=== PATIENT | female | born 1985 | race Caucasian/White ===

== ENCOUNTER → 2016-09-24 | Outpatient (REF) | payer OTHER, MEDICAID ==
[~2016-09-24] MED LIST: ACET50TA PO; DOCU10CA PO; MOTR200T44 PO; PRENTAB55 PO; PROZ20CA11 PO
== END ==
LOC: M SFHCCLAY 13:40
PROVIDERS: ATTEND Family Medicine
DX: Z12.4 Encounter for screening for malignant neoplasm of cervix (principal); R87.612 Low grade squamous intraepithelial lesion on cytologic smear of cervix (LGSIL)

== ENCOUNTER 2016-11-19 06:18 | Day surgery (SDC) | payer OTHER, MEDICAID ==
[~2016-11-19] VITALS: Ht 162.6 cm; Wt 78.5 kg
[~2016-11-19 06:18] MED LIST changes: +ALBU17IN INH; +BUSP15TA47 PO; +DULO1CAP3 PO; +FAMO20TA PO; +KETO10TAB PO; +LAMO10TA PO; +MACR100C43 PO; +MICR1TAB16 PO; +MYRB25TA PO; +NAPR500T3 PO; +PREG100CA PO; +ROBA750T4 PO; +ROPI1TAB PO; +SAPH1SUB9 SL; +TYLETAB14 PO; +VITA10002 PO; +ZANA4CAP PO; +ZOFR20TA PO; +ZONI50CA3 PO
[2016-11-19] MEDS ORDERED: LR 1,000 ML IV SCH ×3 (06:30→09:00)
[2016-11-19] MEDS ORDERED: LIDOCAINE 1% SDV 5 ML VIAL SQ ONE (06:30)
[2016-11-19] MEDS ORDERED: VITA200038 PO (06:51)
[2016-11-19] MEDS ORDERED: VASOPRESSIN INJ 20 UNITS/ML VIAL As Ordered ONE (07:22)
[2016-11-19] MEDS ORDERED: LIDOCAINE 2% INJ 100 MG/5 ML SDV (FOR ANES.) As Ordered ONE (07:43)
[2016-11-19] MEDS ORDERED: dexameTHASONE 4 MG/ML 1ML VIAL (J1100) As Ordered ONE (07:43)
[2016-11-19] MEDS ORDERED: PROPOFOL 200 MG/20 ML VIAL As Ordered ONE (07:43)
[2016-11-19] MEDS ORDERED: MIDAZOLAM INJ 2 MG/2 ML VIAL (J2250) As Ordered ONE (07:43)
[2016-11-19] MEDS ORDERED: fentaNYL 100 MCG/2 ML INJECTION (J3010) As Ordered ONE (07:43)
[2016-11-19] MEDS ORDERED: ONDANSETRON 4MG/2ML VIAL (J2405) As Ordered ONE (08:04)
[2016-11-19] MEDS ORDERED: KETOROLAC 60 MG/2 ML VIAL (J1885) As Ordered ONE (08:04)
[2016-11-19] MEDS ORDERED: fentaNYL 100 MCG/2 ML INJECTION (J3010) IV PRN (09:00)
[2016-11-19] MEDS ORDERED: PERCOCET 5MG/325MG TAB PO PRN (09:00)
[2016-11-19] MEDS ORDERED: ONDANSETRON 4MG/2ML VIAL (J2405) IV PRN (09:00)
[2016-11-19] MEDS ORDERED: METOCLOPRAMIDE INJ 10MG/2ML VIAL (J2765) IV PRN (09:00)
[2016-11-19] MEDS ORDERED: NORCO, ANEXSIA 5/325MG TABLET (HYDROcodone/ACETAMINOPHEN) PO PRN (09:00)
[2016-11-19] MEDS ORDERED: MEPERIDINE INJ 25 MG/ML VIAL (J2175) IV PRN (09:00)
[2016-11-19 09:50] VITALS: BP 134/78
[2016-11-19] MEDS ORDERED: IBUPROFEN 600 MG TAB PO PRN (14:00)
--- NOTE | 2016-11-20 07:02 | RO ---
DATE OF PROCEDURE: 11/19/2016 PREPROCEDURE DIAGNOSIS: Stress urinary incontinence with urethral hypermobility. POSTPROCEDURE DIAGNOSIS: Stress urinary incontinence with urethral hypermobility. PROCEDURE: Mini mid urethral sling with cystourethroscopy. SURGEON: Dr. Niki Phillip RECOOPERER: ANESTHESIA: LMA. BRIEF DESCRIPTION OF PROCEDURE: Michelle was brought to the operating room where sufficient LMA anesthesia was induced and she was prepped, draped and positioned in the usual sterile fashion with the bladder emptied and then the anterior aspect of the vagina visualized. An Allis clamp elevated the anterior vaginal wall and we injected with vasopressin as is typical after the patient had been positioned and the landmarks carefully identified. We then used the scalpel to make an approximately 1.5 cm incision in the anterior vaginal wall approximately 1 cm cephalad from the urethral meatus. The Strully scissors were used to dissect the tracts, both right and left. Then, the mid urethral sling was placed, first on the right side and then on the left, securing it to the obturator fossa and taking care to maintain flat smooth placement of the mesh itself. We used a Solex MiniArc mesh. Then, the cystourethroscopy confirmed normal urethral meati with normal jets of urine from each. There was no evidence of injury to the bladder. We did a 360 degree circumferential evaluation of the bladder mucosa, elevated it with my fingers inferiorly to confirm that there was no puckering or injury from the mesh. Then the procedure was ended with the bladder emptied and the vaginal incision closed with #2-0 Vicryl in running stitch. Good approximation and hemostasis achieved. Estimated blood loss was maybe 5 mL or less. Fluid replacement was crystalloid. Complications: None. Condition and Disposition: Michelle tolerated the procedure well and was recovering in the recovery room in good condition.
== END 2016-11-19 10:04 | disposition home or self-care (01) ==
LOC: M SDC 06:18
PROVIDERS: ATTEND Obstetrics & Gynecology
DX: N39.3 Stress incontinence (female) (male) (principal); N36.41 Hypermobility of urethra; G43.909 Migraine, unspecified, not intractable, without status migrainosus; M79.7 Fibromyalgia; K58.9 Irritable bowel syndrome, unspecified; F32.9 Major depressive disorder, single episode, unspecified; R87.810 Cervical high risk human papillomavirus (HPV) DNA test positive; R29.898 Other symptoms and signs involving the musculoskeletal system; M54.2 Cervicalgia; F41.9 Anxiety disorder, unspecified; Z88.8 Allergy status to other drugs, medicaments and biological substances; Z79.899 Other long term (current) drug therapy; Z72.0 Tobacco use; Z98.51 Tubal ligation status
CPT/HCPCS: 57288; C1771; J0690; J1100; J1885; J2250; J2405; J3010

== ENCOUNTER → 2017-01-06 | Outpatient (REF) | payer OTHER, MEDICAID ==
[~2017-01-06] MED LIST changes: +VITA200038 PO; +ZOFR4TAB3 PO
[2017-01-06 18:33] LABS: VITAMIN B12 LEVEL 472 PG/ML
[2017-01-06 18:34] LABS: FOLATE > 24.0 NG/ML
[2017-01-06 19:15] LABS: BASO % 0.3 % (0.0-1.0); EOS # 0.3 K/mm3 (0.0-0.50); EOS % 2.8 % (0.0-3.0); LARGE UNSTAINED CELL # 0.1 K/mm3 (0.0-0.4); LARGE UNSTAINED CELL % 0.6 % (0.0-4.0); LYMPH % 20.7 % (24.0-44.0); MEAN CORPUSCULAR HEMOGLOBIN 30.2 pg (27.0-33.0); MEAN CORPUSCULAR HGB CONC 33.2 g/dl (32.0-36.5); MEAN CORPUSCULAR VOLUME 91.1 fl (80.0-96.0); MONO # 0.5 K/mm3 (0.0-0.8); NEUTROPHILS # 6.6 K/mm3 (1.8-7.7); NEUTROPHILS % 70.7 % (36.0-66.0); PLATELET COUNT, AUTOMATED 240 k/mm3 (150-450); RED CELL DISTRIBUTION WIDTH 14.6 % (11.5-14.5); WHITE BLOOD COUNT 9.3 K/mm3 (4.0-10.0)
[2017-01-06 19:54] LABS: ALKALINE PHOSPHATASE 68 U/L (45-117); AST/SGOT 22 U/L (15-37); BILIRUBIN,TOTAL 0.2 MG/DL (0.2-1.0); BLOOD UREA NITROGEN 14 MG/DL (7-18); CALCIUM LEVEL 9.3 MG/DL (8.5-10.1); CARBON DIOXIDE LEVEL 23 MEQ/L (21-32); CHLORIDE LEVEL 111 MEQ/L (98-107); CREATININE FOR GFR 1.05 MG/DL (0.55-1.02); GLUCOSE, FASTING 117 MG/DL (70-105); POTASSIUM SERUM 4.2 MEQ/L (3.5-5.1); TOTAL PROTEIN 7.8 GM/DL (6.4-8.2)
[2017-01-06 20:31] LABS: ALT/SGPT 29 U/L (12-78)
[2017-01-06 20:34] LABS: ALBUMIN 3.9 GM/DL (3.2-5.2); ANION GAP 8 MEQ/L (8-16); SODIUM LEVEL 142 MEQ/L (136-145)
[2017-01-06 20:42] LABS: ERYTHROCYTE SEDIMENTATION RATE 20 mm/hr (0-20)
[2017-01-09 00:07] LABS: Lyme Disease IgG/IgM Antibodie <0.91 ISR (0.00-0.90); Lyme Disease IgM Ab Quantitati <0.80 index (0.00-0.79)
== END ==
LOC: M LABNEURO 16:43
PROVIDERS: ATTEND Physician Assistant Medical
DX: E55.9 Vitamin D deficiency, unspecified (principal); R53.83 Other fatigue; R51 Headache; E53.8 Deficiency of other specified B group vitamins; R20.2 Paresthesia of skin

== ENCOUNTER 2017-01-09 19:01 | Emergency (ER) | payer OTHER, MEDICAID ==
[~2017-01-09] VITALS: Ht 162.6 cm; Wt 81.0 kg
[~2017-01-09 19:01] MED LIST changes: -ZOFR4TAB3 PO
[2017-01-09] MEDS ORDERED: NS 500 ML IV ONE (20:30)
[2017-01-09] MEDS ORDERED: ZOFR4TAB3 PO (20:36)
[2017-01-09 21:05] LABS: BASO % 0.4 % (0.0-1.0); EOS # 0.3 K/mm3 (0.0-0.50); LARGE UNSTAINED CELL # 0.2 K/mm3 (0.0-0.4); LARGE UNSTAINED CELL % 2.1 % (0.0-4.0); LYMPH # 2.5 K/mm3 (1.5-6.5); LYMPH % 28.3 % (24.0-44.0); MEAN CORPUSCULAR HEMOGLOBIN 31.8 pg (27.0-33.0); MEAN CORPUSCULAR HGB CONC 35.9 g/dl (32.0-36.5); MEAN CORPUSCULAR VOLUME 88.6 fl (80.0-96.0); MONO # 0.4 K/mm3 (0.0-0.8); MONO % 4.1 % (0.0-5.0); NEUTROPHILS # 5.4 K/mm3 (1.8-7.7); NEUTROPHILS % 62.1 % (36.0-66.0); PLATELET COUNT, AUTOMATED 222 k/mm3 (150-450); RED CELL DISTRIBUTION WIDTH 14.1 % (11.5-14.5); WHITE BLOOD COUNT 8.7 K/mm3 (4.0-10.0)
--- NOTE | 2017-01-09 21:10 | REPUSA ---
CT of the head Clinical history: seizure. Technique: Multiple axial CT images were obtained through the head without administration of contrast . Findings: The ventricles and sulci are symmetric bilaterally. There is no evidence of acute hemorrhag e or infarct. There is no midline shift, mass effect, or extra-axial fluid collection. The osseous st ructures are unremarkable. The visualized paranasal sinuses and mastoid air cells are clear. Impression: Negative study.
[2017-01-09 21:32] LABS: ALBUMIN 3.4 GM/DL (3.2-5.2); ALBUMIN/GLOBULIN RATIO 0.94 (1.00-1.93); ALKALINE PHOSPHATASE 60 U/L (45-117); ALT/SGPT 29 U/L (12-78); ANION GAP 9 MEQ/L (8-16); AST/SGOT 19 U/L (15-37); BILIRUBIN,DIRECT < 0.1 MG/DL (0.0-0.2); BILIRUBIN,TOTAL 0.1 MG/DL (0.2-1.0); BLOOD UREA NITROGEN 13 MG/DL (7-18); CALCIUM LEVEL 8.7 MG/DL (8.5-10.1); CARBON DIOXIDE LEVEL 24 MEQ/L (21-32); CHLORIDE LEVEL 109 MEQ/L (98-107); GLOMERULAR FILTRATION RATE > 60.0 (>60); GLUCOSE, FASTING 90 MG/DL (70-105); SODIUM LEVEL 142 MEQ/L (136-145)
[2017-01-09 22:51] VITALS: BP 109/55
== END 2017-01-09 23:00 | disposition home or self-care (01) ==
LOC: EDBD 19:01 → M ED 19:01
DX: F44.9 Dissociative and conversion disorder, unspecified (principal)
CPT/HCPCS: 36415; 70450; 80048; 80076; 82140; 82550; 82553; 83605; 84443; 85025; 93041; 94760; 99285; G0480

== ENCOUNTER 2017-02-15 23:11 | Emergency (ER) | payer OTHER, MEDICAID ==
[~2017-02-15] VITALS: Ht 162.6 cm; Wt 85.4 kg
[~2017-02-15 23:11] MED LIST changes: +ZOFR4TAB3 PO
[2017-02-15] MEDS ORDERED: ONDANSETRON 4 MG ORAL DISINTEGRATING TAB (S0181) PO ONE (23:30)
--- NOTE | 2017-02-15 23:50 | REPUSA ---
CT of the head Clinical history: trauma. Comparison: 01/09/2017. Technique: Multiple axial CT images were obtained through the head without administration of contrast . Findings: The ventricles and sulci are symmetric bilaterally. There is no evidence of acute hemorrhag e or infarct. There is no midline shift, mass effect, or extra-axial fluid collection. The osseous st ructures are unremarkable. The visualized paranasal sinuses and mastoid air cells are clear. Impression: Negative study.
[2017-02-16 00:34] LABS: MEAN CORPUSCULAR HEMOGLOBIN 29.7 pg (27.0-33.0); MEAN CORPUSCULAR HGB CONC 33.3 g/dl (32.0-36.5); MEAN CORPUSCULAR VOLUME 89.2 fl (80.0-96.0); PLATELET COUNT, AUTOMATED 172 10^3/uL (150-450); RED CELL DISTRIBUTION WIDTH 13.2 % (11.5-14.5)
[2017-02-16 01:05] LABS: ANION GAP 7 MEQ/L (8-16); BLOOD UREA NITROGEN 10 MG/DL (7-18); CALCIUM LEVEL 8.7 MG/DL (8.5-10.1); CARBON DIOXIDE LEVEL 24 MEQ/L (21-32); CHLORIDE LEVEL 109 MEQ/L (98-107); CREATININE FOR GFR 0.81 MG/DL (0.55-1.02); GLOMERULAR FILTRATION RATE > 60.0 (>60); GLUCOSE, FASTING 86 MG/DL (70-105); POTASSIUM SERUM 3.9 MEQ/L (3.5-5.1); SODIUM LEVEL 140 MEQ/L (136-145)
[2017-02-16] MEDS ORDERED: ACETAMINOPHEN 325 MG TAB PO ONE (01:15)
[2017-02-16 01:52] VITALS: BP 100/53
== END 2017-02-16 02:13 | disposition home or self-care (01) ==
LOC: EDBD 23:11 → M ED 23:11
DX: F44.9 Dissociative and conversion disorder, unspecified (principal)
CPT/HCPCS: 70450; 80048; 80175; 85027; 99284; G0480

== ENCOUNTER → 2017-07-14 | Outpatient (REF) | payer OTHER, MEDICAID ==
[2017-07-14 11:32] LABS: BASO % 0.4 % (0.0-1.0); EOS # 0.2 10^3/uL (0.0-0.50); EOS % 1.7 % (0.0-3.0); HEMATOCRIT 45.9 % (36.0-47.0); HEMOGLOBIN 15.1 g/dl (12.0-16.0); IMMATURE GRANULOCYTE % 0.4 % (0-3.0); LYMPH # 2.2 10^3/uL (1.5-4.5); LYMPH % 21.1 % (24.0-44.0); MEAN CORPUSCULAR HEMOGLOBIN 28.7 pg (27.0-33.0); MEAN CORPUSCULAR HGB CONC 32.9 g/dl (32.0-36.5); MEAN CORPUSCULAR VOLUME 87.1 fl (80.0-96.0); MONO # 0.5 10^3/uL (0.0-0.8); MONO % 4.3 % (0.0-5.0); NEUTROPHILS # 7.6 10^3/uL (1.8-7.7); NEUTROPHILS % 72.1 % (36.0-66.0); PLATELET COUNT, AUTOMATED 237 10^3/uL (150-450); RED BLOOD COUNT 5.27 10^6/uL (4.00-5.40); RED CELL DISTRIBUTION WIDTH 13.3 % (11.5-14.5); WHITE BLOOD COUNT 10.5 10^3/uL (4.0-10.0)
[2017-07-14 12:00] LABS: ALBUMIN 3.7 GM/DL (3.2-5.2); ALKALINE PHOSPHATASE 63 U/L (45-117); ALT/SGPT 18 U/L (12-78); ANION GAP 7 MEQ/L (8-16); AST/SGOT 15 U/L (7-37); BILIRUBIN,TOTAL 0.4 MG/DL (0.2-1.0); BLOOD UREA NITROGEN 14 MG/DL (7-18); CALCIUM LEVEL 8.9 MG/DL (8.5-10.1); CARBON DIOXIDE LEVEL 23 MEQ/L (21-32); CHLORIDE LEVEL 111 MEQ/L (98-107); CHOLESTEROL LEVEL 241 MG/DL (<200); CHOLESTEROL RISK RATIO 9.269 (<5); CREATININE FOR GFR 1.04 MG/DL (0.55-1.30); GLOMERULAR FILTRATION RATE > 60.0 (>60); GLUCOSE, FASTING 82 MG/DL (70-100); HDL CHOLESTEROL 26 MG/DL (>40); NON-HDL-C 215 MG/DL; POTASSIUM SERUM 4.2 MEQ/L (3.5-5.1); SODIUM LEVEL 141 MEQ/L (136-145); THYROXINE (T4) 11.7 UG/DL (4.5-12.0); TOTAL PROTEIN 7.4 GM/DL (6.4-8.2); TRIGLYCERIDES LEVEL 641 MG/DL (<150)
== END ==
LOC: M SFHCCLAY 08:34
DX: N92.1 Excessive and frequent menstruation with irregular cycle (principal); Z13.220 Encounter for screening for lipoid disorders; G43.009 Migraine without aura, not intractable, without status migrainosus; M79.7 Fibromyalgia; F44.5 Conversion disorder with seizures or convulsions; F32.9 Major depressive disorder, single episode, unspecified

== ENCOUNTER → 2017-12-26 | Outpatient (REF) | payer OTHER, MEDICAID ==
[2017-12-26 12:55] LABS: TOTAL T3 137.2 NG/DL (60.0-181.0)
[2017-12-26 13:04] LABS: THYROXINE (T4) 8.8 UG/DL (4.5-12.0)
== END ==
LOC: M SFHCCLAY 09:21
DX: R63.5 Abnormal weight gain (principal)
CPT/HCPCS: 84443

== ENCOUNTER → 2018-05-05 | Outpatient (REF) | payer OTHER ==
[~2018-05-05] MED LIST changes: -ACET50TA PO; +MAPA500T2 PO; +NAPR-885 PO; -NAPR500T3 PO; -ZOFR20TA PO; +ZOFR4TAB14 PO; +ZOFR4TAB16 PO; -ZOFR4TAB3 PO
== END ==
LOC: M LABNEURO 11:18
PROVIDERS: ATTEND Physician Assistant Medical
DX: E55.9 Vitamin D deficiency, unspecified (principal)

== ENCOUNTER → 2018-07-06 | Outpatient (REF) | payer OTHER | LOC: M SFHCCLAY 16:59 | PROVIDERS: ATTEND Family Medicine | DX: N30.90 Cystitis, unspecified without hematuria (principal); R35.0 Frequency of micturition ==

== ENCOUNTER → 2018-08-07 | Outpatient (REF) | payer OTHER ==
[~2018-08-07] MED LIST changes: +LAMO100T80 PO; -LAMO10TA PO
== END ==
LOC: M LABNEURO 10:45
PROVIDERS: ATTEND Physician Assistant Medical
DX: E55.9 Vitamin D deficiency, unspecified (principal)

== ENCOUNTER 2018-10-06 23:03 | Inpatient (IN) | payer MEDICAID, OTHER ==
[~2018-10-06] VITALS: Ht 162.6 cm; Wt 79.5 kg
[2018-10-06] MEDS ORDERED: CHARCOAL ACTIVATED LIQUID 25 GM/120 ML BTL As Ordered ONE (23:07)
[2018-10-06] MEDS ORDERED: NS 1,000 ML IV ONE (23:15)
[2018-10-06] MEDS ORDERED: CHARCOAL ACTIVATED LIQUID 25 GM/120 ML BTL PO ONE (23:15)
[2018-10-06 23:33] LABS: VENOUS BASE EXCESS -4.2 (-2.0-2.0); VENOUS O2 SATURATION 43.3 % (60.0-80.0); VENOUS PARTIAL PRESSURE CO2 55.8 mmHg (38.0-50.0); VENOUS PARTIAL PRESSURE O2 24.2 mmHg (30.0-50.0); VENOUS PH 7.252 UNITS (7.330-7.430); VENOUS STANDARD HCO3 19.7 MEQ/L; VENOUS TOTAL CO2 25.7 MEQ/L (24.0-28.0)
[2018-10-06 23:36] LABS: BASO % 0.4 % (0.0-1.0); EOS # 0.1 10^3/uL (0.0-0.50); EOS % 1.1 % (0.0-3.0); HEMATOCRIT 49.8 % (36.0-47.0); HEMOGLOBIN 16.4 g/dl (12.0-15.5); LYMPH # 2.9 10^3/uL (1.5-4.5); LYMPH % 28.8 % (24.0-44.0); MEAN CORPUSCULAR HEMOGLOBIN 29.4 pg (27.0-33.0); MEAN CORPUSCULAR HGB CONC 32.9 g/dl (32.0-36.5); MEAN CORPUSCULAR VOLUME 89.2 fl (80.0-96.0); MONO # 0.6 10^3/uL (0.0-0.8); MONO % 6.4 % (0.0-5.0); NEUTROPHILS # 6.2 10^3/uL (1.8-7.7); PLATELET COUNT, AUTOMATED 205 10^3/uL (150-450); RED BLOOD COUNT 5.58 10^6/uL (4.00-5.40); WHITE BLOOD COUNT 9.9 10^3/uL (4.0-10.0)
[2018-10-06 23:47] LABS: HCG, SERUM QUALITATIVE NEGATIVE (NEGATIVE); OSMOLALITY SERUM 294 MOSM/KG (275-295)
[2018-10-06 23:51] LABS: AMPHETAMINES LEVEL URINE NEGATIVE (NEGATIVE); BARBITURATES URINE NEGATIVE (NEGATIVE); BENZODIAZEPINES URINE NEGATIVE (NEGATIVE); CANNABINOIDS URINE NEGATIVE (NEGATIVE); COCAINE METABOLITE URINE NEGATIVE (NEGATIVE); METHADONE URINE NEGATIVE (NEGATIVE); OPIATES URINE NEGATIVE (NEGATIVE); PHENCYCLIDINE URINE NEGATIVE (NEGATIVE)
[2018-10-07 00:09] LABS: ACETAMINOPHEN LEVEL < 2.0 UG/ML (10.0-30.0); ALBUMIN 3.9 GM/DL (3.2-5.2); ALT/SGPT 25 U/L (12-78); BILIRUBIN,DIRECT < 0.1 MG/DL (0.0-0.2); BILIRUBIN,TOTAL 0.3 MG/DL (0.2-1.0); BLOOD UREA NITROGEN 10 MG/DL (7-18); CALCIUM LEVEL 9.3 MG/DL (8.5-10.1); CARBON DIOXIDE LEVEL 25 MEQ/L (21-32); CHLORIDE LEVEL 108 MEQ/L (98-107); CPK CREATINE PHOSPHOKINASE 52 U/L (26-192); CREATININE FOR GFR 0.96 MG/DL (0.55-1.30); ETHYL ALCOHOL (ETHANOL) < 0.003 % (0.000-0.010); GLOMERULAR FILTRATION RATE > 60.0 (>60); GLUCOSE, FASTING 90 MG/DL (70-100); SALICYLATE LEVEL 6.8 MG/DL (5.0-30.0); SODIUM LEVEL 141 MEQ/L (136-145)
[2018-10-07] MEDS ORDERED: NALT50TA4 PO (00:12)
[2018-10-07] MEDS ORDERED: VITA1CAP25 PO (00:12)
[2018-10-07] MEDS ORDERED: PANT-23 PO (00:12)
[2018-10-07] MEDS ORDERED: METH1TAB40 PO (00:12)
[2018-10-07] MEDS ORDERED: PROP10TA56 PO (00:12)
[2018-10-07] MEDS ORDERED: LARI1TAB5 PO (00:12)
[2018-10-07] MEDS ORDERED: [UNRECOGNIZED DRUG - CODE] PO (00:12)
[2018-10-07] MEDS ORDERED: VENTAER INH (00:12)
--- NOTE | 2018-10-07 03:00 | REP ---
Clinical: Drug overdose . Comparison: None . Technique: Portable upright AP view Findings: The mediastinum and cardiac silhouette are normal. The lung cat are clear and without acute consolidation, effusion, or pneumothorax. The skeletal structures are intact and normal. Impression: 1. No acute cardiopulmonary process. Electronically Signed by Long Alston MD 10/07/2018 02:52 A
[2018-10-07] MEDS ORDERED: NS 1,000 ML IV ONE (03:15)
[2018-10-07] MEDS ORDERED: KETOROLAC TROMETHAMINE 10 MG TAB PO PRN (06:00)
[2018-10-07] MEDS ORDERED: ALBUTEROL 90 MCG/ACT 8GM HFA INHALER INH PRN (06:00)
[2018-10-07] MEDS ORDERED: MOM 30ML SUSPENSION UDC PO PRN (06:45)
[2018-10-07] MEDS ORDERED: traZODone 50 MG TAB PO PRN (06:45)
[2018-10-07] MEDS ORDERED: MAALOX 30 ML SUSP *UDC PO PRN (06:45)
[2018-10-07] MEDS ORDERED: ACETAMINOPHEN TAB 650MG DOSE (2X325MG) PO PRN (06:45)
[2018-10-07] MEDS ORDERED: DESIPRAMINE 25 MG TAB PO SCH (09:00)
[2018-10-07 09:18] VITALS: BP 122/61
[2018-10-07] MEDS: PANTOPRAZOLE 40MG TAB (PROTONIX) PO SCH (09:51)
[2018-10-07] MEDS: lamoTRIgine 100MG TAB PO SCH ×2 (09:51→23:07)
[2018-10-07] MEDS: DULoxetine 30 MG CAP (CYMBALTA) PO SCH ×2 (09:51→23:07)
[2018-10-07] MEDS: busPIRone 5 MG TAB PO SCH ×2 (09:51→23:07)
[2018-10-07] MEDS: PROPRANOLOL 10 MG TAB PO SCH ×2 (09:52→23:08)
--- NOTE | 2018-10-07 13:10 | HPEPDOC ---
General Date of Admission Oct 07, 2018 at 06:42 Date of Service: Oct 07, 2018 Chief Complaint The patient is a 33-year-old female who presented to the ER after overdose at home History of Present Illness Patient is a 33-year-old female with a PMHx Migraines / Bilateral occipital neuralgia, Fibromyalgia, Conversion disorder with seizures, Anxiety / Depression, RLS, Menometrorrhagia who presented to the ER after she had overdosed with medications at home. Patient had reported suicidal attempt without any prior attempts in the past or any thoughts of suicide in the past. Patient reported consuming 20 pills of 25 mg, desipramine as a way to end it all. Her current psychiatric issues are being managed by psychiatry. Hospitalist service was called for medical management. Home Medications Scheduled Buspirone HCl (Buspirone HCl) 15 Mg Tab, 15 MG PO BID for anxiety Cholecalciferol (Vitamin D3) (Vitamin D3) 50,000 Unit Capsule, 50,000 UNIT PO 1XWK, (Reported) FRIDAY NIGHTS Duloxetine Hcl (Duloxetine HCl) 60 Mg Cap, 60 MG PO BID for depression/pain Lamotrigine (Lamotrigine) 100 Mg Tab, 200 MG PO QHS for mood Lamotrigine (Lamotrigine) 100 Mg Tab, 100 MG PO DAILY for mood Norethindrone AC-Eth Estradiol (Regina 21 1-20 Tablet) 1 Each Tablet, 1 TAB PO QHS, (Reported) Pantoprazole Sodium (Pantoprazole Sodium) 40 Mg Tablet.dr, 40 MG PO DAILY, (Reported) Propranolol HCl (Propranolol HCl) 10 Mg Tablet, 10 MG PO BID, (Reported) Ropinirole HCl (Ropinirole HCl) 1 Mg Tab, 1 MG PO BID, (Reported) WITH DINNER AND BEDTIME Zonisamide (Zonisamide) 50 Mg Cap, 100 MG PO QHS, (Reported) Scheduled PRN Albuterol Sulfate (Ventolin Hfa) 18 Gm Hfa.aer.ad, 2 PUFF INH Q4H PRN for SHORTNESS OF BREATH, (Reported) Ketorolac Tromethamine (Ketorolac Tromethamine) 10 Mg Tab, 10 MG PO DAILY PRN for MIGRAINE, (Reported) Methocarbamol (Methocarbamol) 500 Mg Tablet, 500 MG PO TID PRN for MUSCLE S PASMS, (Reported) Trazodone HCl (Trazodone HCl) 50 Mg Tablet, 50 MG PO QHSP PRN for INSOMNIA Allergies Coded Allergies: hydrocodone (Verified Allergy, Mild, 10/06/18) rash, itchy topiramate (Verified Allergy, Mild, 10/06/18) rash benzonatate (Verified Adverse Reaction, Mild, FACIAL NUMBNESS, 10/06/18) Past Medical History Medical History Migraines / Bilateral occipital neuralgia, Fibromyalgia, Conversion disorder with seizures, Anxiety / Depression, RLS, Menometrorrhagia Surgical History Tubal ligation 2015 Multiple Botox injections for migraines, last of which was 2014 Right carpal tunnel surgery 2016 Mesh support for urethra 2017 LEEP procedure 2017 for precancer cells on cervix with positive HPV Family History - Mother with history of high cholesterol - Father with history of high blood pressure and diabetes Social History - Denies the use of alcohol or illicit drugs; patient is smoker of 30 years at 1 PPD - Denies recent travel or sick contacts - Lives alone - Occupation; 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 Review of Systems Other systems 10 point review of systems complete, all negative otherwise stated in HPI Vital Signs - Vitals: BP 122/61, HR 102, RR 16, Sat 100%RA, Temp 97.9F - General: Lying in bed, No acute distress, Speaking in full sentences, AAOx3 - HEENT: NC, AT - CVS: RRR, +S1S2 - Lungs: Fair air entry bilaterally, No wheezing / rales / rhonchi - Abdomen: Soft, Non-distended, Non-tender - Extremities: No lower extremity edema, No calf tenderness - Neuro: No focal motor or sensory deficit - Skin: No visible rashes Laboratory Data Labs 24H Laboratory Tests 2 10/06/18 23:24: Immature Granulocyte % (Auto) 0.3, White Blood Count 9.9, Red Blood Count 5.58H, Hemoglobin 16.4H, Hematocrit 49.8H, Mean Corpuscular Volume 89.2, Mean Corpuscular Hemoglobin 29.4, Mean Corpuscular Hemoglobin Concent 32.9, Red Cell Distribution Width 12.7, Platelet Count 205, Neutrophils (%) (Auto) 63.0, Lymphocytes (%) (Auto) 28.8, Monocytes (%) (Auto) 6.4H, Eosinophils (%) (Auto) 1.1, Basophils (%) (Auto) 0.4, Neutrophils # (Auto) 6.2, Lymphocytes # (Auto) 2.9, Monocytes # (Auto) 0.6, Eosinophils # (Auto) 0.1, Basophils # (Auto) 0.0, Nucleated Red Blood Cells % (auto) 0.0, Blood Gas Bicarbonate Standard 19.7, Venous Blood pH 7.252L, Venous Blood Partial Pressure CO2 55.8H, Venous Blood Partial Pressure O2 24.2L, Venous Blood Total Carbon Dioxide 25.7, Venous Blood HCO3 24.0, Venous Blood Oxygen Saturation 43.3L, Venous Blood Base Excess -4.2L, Anion Gap 8, Glomerular Filtration Rate > 60.0, Osmolality 294, Calcium Level 9.3, Aspartate Amino Transf (AST/SGOT) 14, Alanine Aminotransferase (ALT/SGPT) 25, Alkaline Phosphatase 66, Total Bilirubin 0.3, Direct Bilirubin < 0.1, Total Creatine Kinase 52, Total Protein 8.0, Albumin 3.9, Albumin/Globulin Ratio 0.95L, Thyroid Stimulating Hormone (TSH) 1.950, Human Chorionic Gonadotropin, Qual NEGATIVE, Salicylates Level 6.8, Urine Amphetamines Screen NEGATIVE, Urine Benzodiazepines Screen NEGATIVE, Urine Opiates Screen NEGATIVE, Urine Methadone Screen NEGATIVE, Acetaminophen Level < 2.0L, Urine Barbiturates Screen NEGATIVE, Urine Phencyclidine Screen NEGATIVE, Urine Cocaine Metabolite Screen NEGATIVE, Urine Cannabinoids Screen NEGATIVE, Ethyl Alcohol Level < 0.003 10/06/18 23:29: Bedside Glucose (Misc Panel) 131H 10/07/18 03:10: Salicylates Level 5.7 CBC/BMP Laboratory Tests 10/06/18 23:24 Red Blood Count 5.58 H, Mean Corpuscular Volume 89.2, Mean Corpuscular Hemoglobin 29.4, Mean Corpuscular Hemoglobin Concent 32.9, Red Cell Distribution Width 12.7, Neutrophils (%) (Auto) 63.0, Lymphocytes (%) (Auto) 28.8, Monocytes (%) (Auto) 6.4 H, Eosinophils (%) (Auto) 1.1, Basophils (%) (Auto) 0.4, Neutrophils # (Auto) 6.2, Lymphocytes # (Auto) 2.9, Monocytes # (Auto) 0.6, Eosinophils # (Auto) 0.1, Basophils # (Auto) 0.0 Plan / VTE VTE Prophylaxis Ordered?: Yes Plan Plan Suicidal attempt with overdose of desipramine - Patient had indicated that she had consumed these medications in an attempt to kill herself; and end it all - History of Anxiety / Depression - Patient currently has no suicidal or homicidal ideation - Currently being managed by psychiatry Migraines / Bilateral occipital neuralgia - c/w Propranolol Fibromyalgia Conversion disorder with seizures - c/w Lamotrigine and Zonisamide RLS - c/w Ropinirole Menometrorrhagia - Patient currently does not report any excessive bleeding DVT prophylaxis - Will c/w early ambulation Please reconsult as needed Female traveling construction superintendent was present throughout the duration of his history and physical examination LONG STACY MD Oct 07, 2018 13:10
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
[2018-10-07 18:20] VITALS: BP 111/58
[2018-10-07] MEDS: rOPINIRole 1MG TAB PO SCH ×2 (18:41→23:15)
--- NOTE | 2018-10-07 19:26 | ECGEPIP ---
[facility] - ED Test Date: 2018-10-06 Pat Name: MAYRA CARR Department: Room: [place] [address] Gender: Female Quantitative Consultant: abiola : 1985 Requested By: EVANGELINA Aaron Order Number: [id number] Reading MD: Maite Peoples Measurements Intervals [place] Rate: 91 P: 47 NC: 135 QRS: 75 QRSD: 88 T: 40 QT: 360 QTc: 444 Interpretive Statements SINUS RHYTHM POSSIBLE RIGHT VENTRICULAR CONDUCTION DELAY NO PRIOR Electronically Signed on 10-07-2018 19:25:51 EDT by Maite Peoples
--- NOTE | 2018-10-07 19:28 | ECGEPIP ---
[facility] - ED Test Date: 2018-10-07 Pat Name: MAYRA CARR Department: Room: [place] [address] Gender: Female Instructional Technology Coordinator: zaki : 1985 Requested By: EVANGELINA Aaron Order Number: [id number] Reading MD: Maite Peoples Measurements Intervals [place] Rate: 113 P: 59 [place]: 138 QRS: 75 QRSD: 92 T: 27 QT: 338 QTc: 465 Interpretive Statements SINUS TACHYCARDIA INCOMPLETE RIGHT BUNDLE BRANCH BLOCK ABNORMAL RHYTHM ECG INCREASED RATE 23:26 Electronically Signed on 10-07-2018 19:28:12 EDT by Maite Peoples
[2018-10-07] MEDS: [UNRECOGNIZED DRUG - OTHER] PO SCH (23:07)
[2018-10-07] MEDS: ZONISAMIDE 100 MG CAP (ZONEGRAN) PO SCH (23:15)
[2018-10-07] MEDS: DESIPRAMINE 25 MG TAB PO SCH (23:16)
[2018-10-08 06:43] VITALS: BP 114/59
[2018-10-08] MEDS: lamoTRIgine 100MG TAB PO SCH ×2 (08:17→20:52)
[2018-10-08] MEDS: busPIRone 5 MG TAB PO SCH ×2 (08:17→20:54)
[2018-10-08] MEDS: DULoxetine 30 MG CAP (CYMBALTA) PO SCH ×2 (08:17→20:54)
[2018-10-08] MEDS: PANTOPRAZOLE 40MG TAB (PROTONIX) PO SCH (08:17)
[2018-10-08] MEDS: PROPRANOLOL 10 MG TAB PO SCH ×2 (08:18→20:54)
[2018-10-08 18:08] VITALS: BP 126/74
[2018-10-08] MEDS: rOPINIRole 1MG TAB PO SCH ×2 (19:02→21:26)
--- NOTE | 2018-10-08 19:05 | MHIPNPDOC ---
[facility] Progress Note Progress Note DATE OF SERVICE: 10/08/18 HISTORY: Patient is a 33 -year-old , female, who, as per ED report: "Pt was brought to the ED by EMS after her friend called because pt made concerning statements. When EMS arrived they discovered that she had taken an OD of 20 Desipramine pills. Pt states that the OD was a suicide attempt. Main trigger is that she thinks her children would be better off without her because they tell her that they hate her & they do not want to go to her house. Their father has custody & she has visitation. Pt c/o depressed mood, anxiety, hopelessness & helplessness, poor concentration, poor sleep, & poor energy. Pt denies any hx of suicide attempts. No hx of mental health admissions. She has OP tx at [facility] with dx of bipolar d/o, depression, anxiety, & conversion d/o. She is currently prescribed Lamictal, Cymbalta, Buspar, & Desipramine. She reports occasional ETOH use, denies drug use. Her tox screen was negative". VITAL SIGNS: See below. NEW TEST RESULTS: See below CURRENT MEDICATIONS: See below. MENTAL STATUS EXAMINATION: Patient is a 33-year old female, who is alert, sitting on her bead, cooperative, dressed with hospital clothes. Speech: Is coherent, normal in rhythm, tone and volume, spontaneous and fluent. Language skills are good. Thought processes including: linear, coherent. Thought content: guilty thoughts about trying to hurt herself but she is less anxious and has less depressive thoughts compared to yesterday. Denies active SI, denies HI, denies thought delusions Description of abnormal or psychotic thoughts: Denies SI, HI, thought delusions and reports no AV hallucinations Judgment: Improving Insight: Improving Orientation: x 3. Recent and remote memory: good. Attention span and concentration: improved, she is less anxious today. Language: full, appropriate. Fund of knowledge: average. Mood: less depressed,less anxious. Affect: congruent with mood. DIAGNOSES: 1. Unspecified mood disorder, R/O bipolar disorder, depressive episode 3. AAKASH 3. Unspecified trauma/stressor disorder ASSESSMENT: she is less depressed, feels better. spoke with her 11 year old daughter on the phone because she was asking about her mother. she told her she had been admitted because she had tried to take her life. Her daughter cried and later on she spoke with her father. She thinks her daughter needs to know the truth and she spoke with her about this because she thinks that being 13 she will be able to understand. At that moment, she cried but was able to control the tears shortly after she spoke about this subject. MANAGEMENT PLAN: will continue with the same tx. plan TIME SPENT: 20 minutes. Vital Signs Vital Signs Date Time Temp Pulse Resp B/P (MAP) Pulse Ox O2 Delivery O2 Flow Rate FiO2 10/08/18 18:08 97.8 92 16 126/74 (91) 10/07/18 09:18 96 10/07/18 08:53 Room Air Current Medications Current Medications Acetaminophen (Tylenol Tab) 650 mg Q6HP PRN PO HEADACHE or DISCOMFORT; Start 10/07/18 at 06:45 Al Hydrox/Mg Hydrox/Simethicone (Mylanta) 30 ml Q4HP PRN PO HEARTBURN/INDIGESTION; Start 10/07/18 at 06:45 Albuterol Sulfate (Proventil, Ventolin Hfa) 2 puff Q4H PRN INH SHORTNESS OF BREATH; Start 10/07/18 at 06:00 Buspirone HCl (Buspar) 15 mg BID PO Last administered on 10/08/18at 08:17; Start 10/07/18 at 09:00 Desipramine HCl (Norpramin) 25 mg DAILY PO ; Start 10/07/18 at 09:00; Status Cancel Desipramine HCl (Norpramin) 25 mg QHS PO Last administered on 10/07/18at 23:16; Start 10/07/18 at 21:00 Duloxetine HCl (Cymbalta) 60 mg BID PO Last administered on 10/08/18at 08:17; Start 10/07/18 at 09:00 Home Med (Med Rec Complete!) ASDIRECTED XX ; Start 10/07/18 at 00:15; Stop 10/07/18 at 00:18; Status DC Ketorolac Tromethamine (ToRADol) 10 mg DAILY PRN PO MIGRAINE; Start 10/07/18 at 06:00; Stop 10/12/18 at 05:59 Lamotrigine (LaMICtal) 100 mg DAILY PO Last administered on 10/08/18at 08:17; Start 10/07/18 at 09:00 Lamotrigine (LaMICtal) 200 mg QHS PO Last administered on 10/07/18 23:07; Start 10/07/18 at 21:00 Magnesium Hydroxide (Milk Of Magnesia) 30 ml DAILYPRN PRN PO CONSTIPATION; Start 10/07/18 at 06:45 Methocarbamol (Robaxin) 500 mg TID PRN PO MUSCLE SPASMS; Start 10/07/18 at 06:00 Pantoprazole Sodium (Protonix) 40 mg DAILY PO Last administered on 10/08/18 08:17; Start 10/07/18 at 09:00 Patient Own Medication (Patient'S Own Med) 1 TAB QHS PO Last administered on 10/07/18 23:07; Start 10/07/18 at 21:00 Propranolol HCl (Inderal) 10 mg BID PO Last administered on 10/08/18 08:18; Start 10/07/18 at 09:00 Ropinirole HCl (Requip) 1 mg BID@1800,2100 PO Last administered on 10/07/18 23:15; Start 10/07/18 at 18:00 Trazodone HCl (Desyrel) 50 mg QHSP PRN PO INSOMNIA; Start 10/07/18 at 06:45 Zonisamide (Zonegran) 100 mg QHS PO Last administered on 10/07/18 23:15; Start 10/07/18 at 21:00 Allergies Coded Allergies: hydrocodone (Verified Allergy, Mild, 10/06/18) rash, itchy topiramate (Verified Allergy, Mild, 10/06/18) rash benzonatate (Verified Adverse Reaction, Mild, FACIAL NUMBNESS, 10/06/18) RICARDO REED MD Oct 08, 2018 19:04
[2018-10-08] MEDS: DESIPRAMINE 25 MG TAB PO SCH (20:54)
[2018-10-08] MEDS: [UNRECOGNIZED DRUG - OTHER] PO SCH (20:54)
[2018-10-08] MEDS: ZONISAMIDE 100 MG CAP (ZONEGRAN) PO SCH (21:25)
[2018-10-09 07:01] VITALS: BP 127/74
[2018-10-09] MEDS: lamoTRIgine 100MG TAB PO SCH ×2 (08:06→20:31)
[2018-10-09] MEDS: DULoxetine 30 MG CAP (CYMBALTA) PO SCH ×2 (08:06→20:32)
[2018-10-09] MEDS: PANTOPRAZOLE 40MG TAB (PROTONIX) PO SCH (08:07)
[2018-10-09] MEDS: busPIRone 5 MG TAB PO SCH ×2 (08:07→20:32)
[2018-10-09] MEDS: PROPRANOLOL 10 MG TAB PO SCH ×2 (08:08→20:32)
[2018-10-09] MEDS: METHOCARBAMOL 500 MG TAB PO PRN ×2 (10:03→20:32)
[2018-10-09 11:12] VITALS: BP 118/74
[2018-10-09] MEDS: rOPINIRole 1MG TAB PO SCH ×2 (17:21→20:31)
[2018-10-09 18:09] VITALS: BP 124/79
[2018-10-09] MEDS: ZONISAMIDE 100 MG CAP (ZONEGRAN) PO SCH (20:31)
[2018-10-09] MEDS: DESIPRAMINE 25 MG TAB PO SCH (20:32)
[2018-10-09] MEDS: [UNRECOGNIZED DRUG - OTHER] PO SCH (20:32)
--- NOTE | 2018-10-09 22:06 | MHIPNPDOC ---
[facility] Progress Note Progress Note DATE OF SERVICE: 10/09/18 HISTORY: Patient is a 33 -year-old , female, who, as per ED report: "Pt was brought to the ED by EMS after her friend called because pt made concerning statements. When EMS arrived they discovered that she had taken an OD of 20 Desipramine pills. Pt states that the OD was a suicide attempt. Main trigger is that she thinks her children would be better off without her because they tell her that they hate her & they do not want to go to her house. Their father has custody & she has visitation. Pt c/o depressed mood, anxiety, hopelessness & helplessness, poor concentration, poor sleep, & poor energy. Pt denies any hx of suicide attempts. No hx of mental health admissions. She has OP tx at [facility] with dx of bipolar d/o, depression, anxiety, & conversion d/o. She is currently prescribed Lamictal, Cymbalta, Buspar, & Desipramine. She reports occasional ETOH use, denies drug use. Her tox screen was negative". VITAL SIGNS: See below. NEW TEST RESULTS: See below CURRENT MEDICATIONS: See below. MENTAL STATUS EXAMINATION: Patient is a 33-year old female, who is alert, sitting on her bead, cooperative, dressed with hospital clothes. Speech: Is coherent, normal in rhythm, tone and volume, spontaneous and fluent. Language skills are good. Thought processes including: linear, coherent. Thought content: guilty thoughts about trying to hurt herself. Denies active SI, denies HI, denies thought delusions. She is future orientated, she wants to get better because of her children, she doesn't want to hurt herself ever again. Description of abnormal or psychotic thoughts: Denies SI, HI, thought delusions and reports no AV hallucinations Judgment: Improving Insight: Improving Orientation: x 3. Recent and remote memory: good. Attention span and concentration: improved, she is less anxious today. Language: full, appropriate. Fund of knowledge: average. Mood: less depressed,less anxious. Affect: congruent with mood. DIAGNOSES: 1. Unspecified mood disorder, R/O bipolar disorder, depressive episode 3. AAKASH 3. Unspecified trauma/stressor disorder ASSESSMENT: She states she feels better although she is still depressed. She can't say exactly what triggered this depressive episode but she thinks it was everything at once that hit her very hard, maybe since she from her , maybe before that. She has had problems with her children, more so with her 11 year old daughter and for that reason this engineering technical writer tells her that it would be good for her and her daughter to go to therapy at least for a couple of sessions but she says her daughter has refused to have a session with her. Her daughter goes for therapy to the [facility] and the patient goes to [place] twice/week. The patient is receptive to go for therapy with her daughter for a couple of sessions and says she is going to talk to her therapist to see if it can be arranged. I think it's important for them to sit and talk about their problems especially now that the patient has attempted suicide because this event can affect the already difficult relationship they have. The patient is having a good response to medications. MANAGEMENT PLAN: will continue with the same tx. plan TIME SPENT: 20 minutes. Vital Signs Vital Signs Date Time Temp Pulse Resp B/P (MAP) Pulse Ox O2 Delivery O2 Flow Rate FiO2 10/09/18 20:32 122 142/101 10/09/18 18:09 98.1 16 10/07/18 09:18 96 10/07/18 08:53 Room Air Current Medications Current Medications Acetaminophen (Tylenol Tab) 650 mg Q6HP PRN PO HEADACHE or DISCOMFORT; Start 10/07/18 at 06:45 Al Hydrox/Mg Hydrox/Simethicone (Mylanta) 30 ml Q4HP PRN PO HEARTBURN /INDIGESTION; Start 10/07/18 at 06:45 Albuterol Sulfate (Proventil, Ventolin Hfa) 2 puff Q4H PRN INH SHORTNESS OF BREATH; Start 10/07/18 at 06:00 Buspirone HCl (Buspar) 15 mg BID PO Last administered on 10/09/18at 20:32; Start 10/07/18 at 09:00 Desipramine HCl (Norpramin) 25 mg DAILY PO ; Start 10/07/18 at 09:00; Status Cancel Desipramine HCl (Norpramin) 25 mg QHS PO Last administered on 10/09/18at 20:32; Start 10/07/18 at 21:00 Duloxetine HCl (Cymbalta) 60 mg BID PO Last administered on 10/09/18 20:32; Start 10/07/18 at 09:00 Home Med (Med Rec Complete!) ASDIRECTED XX ; Start 10/07/18 at 00:15; Stop 10/07/18 at 00:18; Status DC Ketorolac Tromethamine (ToRADol) 10 mg DAILY PRN PO MIGRAINE; Start 10/07/18 at 06:00; Stop 10/12/18 at 05:59 Lamotrigine (LaMICtal) 100 mg DAILY PO Last administered on 10/09/18 08:06; Start 10/07/18 at 09:00 Lamotrigine (LaMICtal) 200 mg QHS PO Last administered on 10/09/18 20:31; Start 10/07/18 at 21:00 Magnesium Hydroxide (Milk Of Magnesia) 30 ml DAILYPRN PRN PO CONSTIPATION; Start 10/07/18 at 06:45 Methocarbamol (Robaxin) 500 mg TID PRN PO MUSCLE SPASMS Last administered on 10/09/18 20:32; Start 10/07/18 at 06:00 Pantoprazole Sodium (Protonix) 40 mg DAILY PO Last administered on 10/09/18 08:07; Start 10/07/18 at 09:00 Patient Own Medication (Patient'S Own Med) 1 TAB QHS PO Last administered on 10/09/18 20:32; Start 10/07/18 at 21:00 Propranolol HCl (Inderal) 10 mg BID PO Last administered on 10/09/18 20:32; Start 10/07/18 at 09:00 Ropinirole HCl (Requip) 1 mg BID@1800,2100 PO Last administered on 10/09/18 20:31; Start 10/07/18 at 18:00 Trazodone HCl (Desyrel) 50 mg QHSP PRN PO INSOMNIA; Start 10/07/18 at 06:45 Zonisamide (Zonegran) 100 mg QHS PO Last administered on 10/09/18 20:31; Start 10/07/18 at 21:00 Allergies Coded Allergies: hydrocodone (Verified Allergy, Mild, 10/06/18) rash, itchy topiramate (Verified Allergy, Mild, 10/06/18) rash benzonatate (Verified Adverse Reaction, Mild, FACIAL NUMBNESS, 10/06/18) RICARDO REED MD Oct 09, 2018 22:06
[2018-10-10 06:28] VITALS: BP 131/79
[2018-10-10] MEDS: PANTOPRAZOLE 40MG TAB (PROTONIX) PO SCH (08:23)
[2018-10-10] MEDS: PROPRANOLOL 10 MG TAB PO SCH ×2 (08:24→20:54)
[2018-10-10] MEDS: busPIRone 5 MG TAB PO SCH ×2 (08:24→20:51)
[2018-10-10] MEDS: DULoxetine 30 MG CAP (CYMBALTA) PO SCH ×2 (08:24→20:51)
[2018-10-10] MEDS: lamoTRIgine 100MG TAB PO SCH ×2 (08:24→20:52)
[2018-10-10] MEDS: METHOCARBAMOL 500 MG TAB PO PRN (08:24)
[2018-10-10] MEDS: rOPINIRole 1MG TAB PO SCH ×2 (17:17→20:52)
[2018-10-10 19:09] VITALS: BP 137/85
[2018-10-10] MEDS: ZONISAMIDE 100 MG CAP (ZONEGRAN) PO SCH (20:52)
[2018-10-10] MEDS: DESIPRAMINE 25 MG TAB PO SCH (20:52)
[2018-10-10] MEDS: [UNRECOGNIZED DRUG - OTHER] PO SCH (20:52)
[2018-10-11 06:52] VITALS: BP 105/59
[2018-10-11] MEDS: DULoxetine 30 MG CAP (CYMBALTA) PO SCH ×2 (08:16→20:37)
[2018-10-11] MEDS: busPIRone 5 MG TAB PO SCH ×2 (08:16→20:38)
[2018-10-11] MEDS: PANTOPRAZOLE 40MG TAB (PROTONIX) PO SCH (08:16)
[2018-10-11] MEDS: PROPRANOLOL 10 MG TAB PO SCH ×2 (08:16→20:38)
[2018-10-11] MEDS: lamoTRIgine 100MG TAB PO SCH ×2 (08:17→20:39)
[2018-10-11] MEDS: METHOCARBAMOL 500 MG TAB PO PRN ×2 (08:17→20:39)
--- NOTE | 2018-10-11 08:49 | MHIPN ---
DATE OF SERVICE: 10/10/2018 The patient today states "I'm feeing pretty good." She thinks it is because she was able to talk to her children today. She says her mood is about a 2/10. She says she slept good. She denies suicidal ideations. MENTAL STATUS EXAMINATION: She is alert and oriented times three. She is pleasant and cooperative. Verbally spontaneous. Mood is "pretty good." Affect full range and appropriate. She is not psychotic. She is not suicidal or homicidal. Concentration and memory is good. Insight and judgment is fair. DIAGNOSIS: Unspecified mood disorder. Rule out bipolar disorder. Depressive disorder. Generalized anxiety disorder. Unspecified trauma/stressor disorder. TREATMENT PLAN: At this point, will continue to monitor the patient for continued stabilization and elevation of her mood, and for continued resolution of any suicidal ideations.
--- NOTE | 2018-10-11 11:06 | IPNPDOC ---
Date Seen The patient was seen on 10/11/18. Progress Note Notified my nursing staff that patient complains of vaginal itching 2/2 soap usage. Has history of vaginal yeast infection when she uses a different soap in the past. Has been treated with fluconazole before but last time with Augmentin as patient also had bronchitis at that time. Vaginal exam showed no significant abnormalities. Will prescribe one dose of fluconazole. If symptoms persistent or recurs in the next few days, please call back. VS, I&O, 24H, Fishbone Vital Signs/I&O Vital Signs Date Time Temp Pulse Resp B/P (MAP) Pulse Ox O2 Delivery O2 Flow Rate FiO2 10/11/18 08:16 94 105/59 10/11/18 06:52 97.8 12 10/07/18 09:18 96 10/07/18 08:53 Room Air KAUSHAL SKAGGS MD Oct 11, 2018 11:06
[2018-10-11] MEDS ORDERED: FLUCONAZOLE 50MG TABLET PO ONE (12:00)
[2018-10-11] MEDS: rOPINIRole 1MG TAB PO SCH ×2 (17:11→20:38)
[2018-10-11 18:18] VITALS: BP 136/86
[2018-10-11] MEDS: [UNRECOGNIZED DRUG - OTHER] PO SCH (20:37)
[2018-10-11] MEDS: ZONISAMIDE 100 MG CAP (ZONEGRAN) PO SCH (20:39)
[2018-10-11] MEDS: DESIPRAMINE 25 MG TAB PO SCH (21:39)
--- NOTE | 2018-10-12 03:33 | MHIPN ---
DATE: 10/11/2018 The patient today states, "I feel really good today." She says she has more energy and she even did yoga today. She has no complaints. MENTAL STATUS EXAMINATION: She is alert and oriented times three. Pleasant and cooperative. Verbally spontaneous. Eye contact is good. There is no formal thought disorder noted. Mood is good. Affect full range and appropriate. She is not psychotic, suicidal, homicidal. Concentration is fair. Insight and judgment fair. DIAGNOSES: 1. Unspecified mood disorder, rule out bipolar disorder. 2. Generalized anxiety disorder. 3. Unspecified trauma/stressor disorder. TREATMENT PLAN: At this point, we will continue to further monitor the patient for continued elevation and stabilization of her mood and continued resolution of suicidal ideation.
[2018-10-12 06:45] VITALS: BP 100/76
[2018-10-12] MEDS: busPIRone 5 MG TAB PO SCH (08:07)
[2018-10-12] MEDS: PANTOPRAZOLE 40MG TAB (PROTONIX) PO SCH (08:07)
[2018-10-12] MEDS: lamoTRIgine 100MG TAB PO SCH (08:07)
[2018-10-12 08:08] VITALS: BP 134/78
[2018-10-12] MEDS: PROPRANOLOL 10 MG TAB PO SCH (08:08)
[2018-10-12] MEDS: METHOCARBAMOL 500 MG TAB PO PRN (08:08)
[2018-10-12] MEDS: DULoxetine 30 MG CAP (CYMBALTA) PO SCH (08:08)
[2018-10-12] MEDS ORDERED: TRAZ-252 PO (11:20)
[2018-10-12] MEDS ORDERED: BUSP15TA47 PO (11:20)
[2018-10-12] MEDS ORDERED: LAMO100T80 PO ×2 (11:20)
[2018-10-12] MEDS ORDERED: DULO1CAP3 PO (11:20)
--- NOTE | 2018-10-19 21:30 | MHDSPDOC ---
[facility] Discharge Summary Discharge Summary DATE OF ADMISSION: Oct 07, 2018 at 06:42 DATE OF DISCHARGE: Oct 12, 2018 at 11:58 DISCHARGE DIAGNOSES: 1. Major Depressive Disorder, recurrent 2. R/O bipolar disorder, depressive episode 3. AAKASH 3. Unspecified trauma/stressor disorder REASON FOR ADMISSION: Patient is a 33 -year-old , female, who, as per ED report: "Pt was brought to the ED by EMS after her friend called because pt made concerning statements. When EMS arrived they discovered that she had taken an OD of 20 Desipramine pills. Pt states that the OD was a suicide attempt. Main trigger is that she thinks her children would be better off without her because they tell her that they hate her & they do not want to go to her house. Their father has custody & she has visitation. Pt c/o depressed mood, anxiety, hopelessness & helplessness, poor concentration, poor sleep, & poor energy. Pt denies any hx of suicide attempts. No hx of mental health admissions. She has OP tx at [facility] with dx of bipolar d/o, depression, anxiety, & conversion d/o. She is currently prescribed Lamictal, Cymbalta, Buspar, & Desipramine. She reports occasional ETOH use, denies drug use. Her tox screen was negative". CONSULTANTS INVOLVED: None TREATMENT AND PROGRESS ON THE UNIT : Upon initial evaluation the patient was very tearful, feeling very guilty, angry and frustrated because she resented the fact that her children were not nice to her. She said she had not been able to fall asleep for days , she had no energy. She didn't like to attend groups but went to some of them. She had a good response to medications and was able to talk to her daughter and this was painful for her because her daughter broke in tears because her mother told her that she was hospitalized. This copy writer recommended her to go to individual therapy but try to have some sessions with her daughter with whom they need to heal their relationship. During the last 72 hours of hospitalization she became more sociable, she was visible in the milieu, more hopeful about being able to improve her relationship with her children. HOSPITAL COURSE: As above DISCHARGE ASSESSMENT: She was not suicidal, not homicidal, not psychoti at the time of her discharge. She did not report medications side effects. she was future orientated. MENTAL STATUS EXAMINATION ON DISCHARGE: Patient is a 33-year old female, who is alert, sitting on her bead, cooperative, dressed with hospital clothes. Speech: Is coherent, normal in rhythm, tone and volume, spontaneous and fluent. Language skills are good. Thought processes including: linear, coherent. Thought content: guilty thoughts about trying to hurt herself. Denies active SI, denies HI, denies thought delusions. She is future orientated, she wants to get better because of her children, she doesn't want to hurt herself ever again. Description of abnormal or psychotic thoughts: Denies SI, HI, thought delusions and reports no AV hallucinations Judgment: Improving Insight: Improving Orientation: x 3. Recent and remote memory: good. Attention span and concentration: improved, she is less anxious today. Language: full, appropriate. Fund of knowledge: average. Mood: less depressed,less anxious. Affect: congruent with mood. DIAGNOSES: 1. Unspecified mood disorder, R/O bipolar disorder, depressive episode 3. AAKASH 3. Unspecified trauma/stressor disorder MEDICATIONS ON DISCHARGE: Scheduled Buspirone HCl (Buspirone HCl) 15 Mg Tab, 15 MG PO BID for anxiety, #14 Cholecalciferol (Vitamin D3) (Vitamin D3) 50,000 Unit Capsule, 50,000 UNIT PO 1XWK, (Reported) FRIDAY NIGHTS Duloxetine Hcl (Duloxetine HCl) 60 Mg Cap, 60 MG PO BID for depression/pain, #14 Lamotrigine (Lamotrigine) 100 Mg Tab, 200 MG PO QHS for mood, #14 Lamotrigine (Lamotrigine) 100 Mg Tab, 100 MG PO DAILY for mood, #7 Norethindrone AC-Eth Estradiol (Regina 21 1-20 Tablet) 1 Each Tablet, 1 TAB PO QHS, (Reported) Pantoprazole Sodium (Pantoprazole Sodium) 40 Mg Tablet.dr, 40 MG PO DAILY, (Re ported) Propranolol HCl (Propranolol HCl) 10 Mg Tablet, 10 MG PO BID, (Reported) Ropinirole HCl (Ropinirole HCl) 1 Mg Tab, 1 MG PO BID, (Reported) WITH DINNER AND BEDTIME Zonisamide (Zonisamide) 50 Mg Cap, 100 MG PO QHS, (Reported) Scheduled PRN Albuterol Sulfate (Ventolin Hfa) 18 Gm Hfa.aer.ad, 2 PUFF INH Q4H PRN for SHORTNESS OF BREATH, (Reported) Ketorolac Tromethamine (Ketorolac Tromethamine) 10 Mg Tab, 10 MG PO DAILY PRN for MIGRAINE, (Reported) Methocarbamol (Methocarbamol) 500 Mg Tablet, 500 MG PO TID PRN for MUSCLE SPASMS, (Reported) Trazodone HCl (Trazodone HCl) 50 Mg Tablet, 50 MG PO QHSP PRN for INSOMNIA, #7 PLAN/FOLLOWUP ARRANGEMENTS: Follow Up Care Education Label * Mental Health Appt 1 * [facility] * Established With This Provider Yes * Therapist MONI WILKINSON * Date Oct 13, 2018 * Time 13:00 * Address of Clinic or Practice [address] [place] [address] * Follow Up Care Education Label * Medical * Medical Follow Up [facility] * Established With This Provider Yes * Therapist DR. HAWKINS * Date Oct 21, 2018 * Time 15:30 * Address of Clinic or Practice [address] [place] [address] * The amount of time spent in the coordination of care for this patient was approximately 30 minutes. Medications Scheduled Buspirone HCl (Buspirone HCl) 15 Mg Tab, 15 MG PO BID for anxiety, #14 Cholecalciferol (Vitamin D3) (Vitamin D3) 50,000 Unit Capsule, 50,000 UNIT PO 1XWK, (Reported) FRIDAY NIGHTS Duloxetine Hcl (Duloxetine HCl) 60 Mg Cap, 60 MG PO BID for depression/pain, #14 Lamotrigine (Lamotrigine) 100 Mg Tab, 200 MG PO QHS for mood, #14 Lamotrigine (Lamotrigine) 100 Mg Tab, 100 MG PO DAILY for mood, #7 Norethindrone AC-Eth Estradiol (Regina 21 1-20 Tablet) 1 Each Tablet, 1 TAB PO QHS, (Reported) Pantoprazole Sodium (Pantoprazole Sodium) 40 Mg Tablet.dr, 40 MG PO DAILY, (Reported) Propranolol HCl (Propranolol HCl) 10 Mg Tablet, 10 MG PO BID, (Reported) Ropinirole HCl (Ropinirole HCl) 1 Mg Tab, 1 MG PO BID, (Reported) WITH DINNER AND BEDTIME Zonisamide (Zonisamide) 50 Mg Cap, 100 MG PO QHS, (Reported) Scheduled PRN Albuterol Sulfate (Ventolin Hfa) 18 Gm Hfa.aer.ad, 2 PUFF INH Q4H PRN for SHORTNESS OF BREATH, (Reported) Ketorolac Tromethamine (Ketorolac Tromethamine) 10 Mg Tab, 10 MG PO DAILY PRN for MIGRAINE, (Reported) Methocarbamol (Methocarbamol) 500 Mg Tablet, 500 MG PO TID PRN for MUSCLE SPASMS, (Reported) Trazodone HCl (Trazodone HCl) 50 Mg Tablet, 50 MG PO QHSP PRN for INSOMNIA, #7 Allergies Coded Allergies: hydrocodone (Verified Allergy, Mild, 10/06/18) rash, itchy topiramate (Verified Allergy, Mild, 10/06/18) rash benzonatate (Verified Adverse Reaction, Mild, FACIAL NUMBNESS, 10/06/18) RICARDO REED MD Oct 19, 2018 21:24
== END 2018-10-12 11:58 | disposition home or self-care (01) | DRG 751 ==
LOC: M ED 23:03 → M ED INP 10-07 06:42 → M PSY 10-07 09:05
PROVIDERS: ADMIT Psychiatry & Neurology Psychiatry; ATTEND Psychiatry & Neurology Psychiatry
DX: F33.9 Major depressive disorder, recurrent, unspecified (principal); F31.30 Bipolar disorder, current episode depressed, mild or moderate severity, unspecified; R45.851 Suicidal ideations; F41.1 Generalized anxiety disorder; Z79.899 Other long term (current) drug therapy; Z88.5 Allergy status to narcotic agent; Z88.8 Allergy status to other drugs, medicaments and biological substances; G43.909 Migraine, unspecified, not intractable, without status migrainosus; M79.7 Fibromyalgia; G25.81 Restless legs syndrome

== ENCOUNTER → 2018-12-29 | Outpatient (REF) | payer OTHER ==
[~2018-12-29] MED LIST changes: +CYAN100049 PO; -DULO1CAP3 PO; +DULO1CAP6 PO; +LARI1TAB5 PO; +METH1TAB40 PO; +NALT50TA4 PO; +PANT-23 PO; +PROP10TA56 PO; +TRAZ-252 PO; +VENTAER INH; -VITA10002 PO; +VITA1CAP25 PO; +[UNRECOGNIZED DRUG - CODE] PO
[2018-12-29 11:41] LABS: ALBUMIN 3.7 GM/DL (3.2-5.2); ALT/SGPT 16 U/L (12-78); BILIRUBIN,TOTAL 0.3 MG/DL (0.2-1.0); BLOOD UREA NITROGEN 15 MG/DL (7-18); CALCIUM LEVEL 9.1 MG/DL (8.5-10.1); CARBON DIOXIDE LEVEL 23 MEQ/L (21-32); CHLORIDE LEVEL 106 MEQ/L (98-107); CHOLESTEROL LEVEL 267 MG/DL (<200); CHOLESTEROL RISK RATIO 10.269 (<5); CREATININE FOR GFR 0.96 MG/DL (0.55-1.30); GLOMERULAR FILTRATION RATE > 60.0 (>60); GLUCOSE, FASTING 98 MG/DL (70-100); HDL CHOLESTEROL 26 MG/DL (>40); NON-HDL-C 241 MG/DL; POTASSIUM SERUM 4.2 MEQ/L (3.5-5.1); SODIUM LEVEL 139 MEQ/L (136-145); TOTAL PROTEIN 6.9 GM/DL (6.4-8.2); TRIGLYCERIDES LEVEL 1014 MG/DL (<150)
== END ==
LOC: M SFHCCLAY 07:31
PROVIDERS: ATTEND Family Medicine
DX: Z00.00 Encounter for general adult medical examination without abnormal findings (principal); Z13.1 Encounter for screening for diabetes mellitus; R63.1 Polydipsia; E78.5 Hyperlipidemia, unspecified; R68.89 Other general symptoms and signs

== ENCOUNTER → 2019-04-30 | Outpatient (CLI) | payer OTHER ==
[~2019-04-30] MED LIST changes: +ZONI50CA11 PO; -ZONI50CA3 PO
--- NOTE | 2019-04-30 17:29 | REP ---
Digital diagnostic bilateral mammography with CAD, 3-D tomography, and focused left breast sonography. History: Pain in the left breast. Recent treatment with antibiotics for mastitis. Swelling and lump in the left breast laterally. No comparison mammography. Mammographic findings: A skin marker is affixed to the skin at the site of the palpable lump which projects laterally in the left inferolateral quadrant. Routine views and tomography are supplemented by magnified focal spot compression images. The breast parenchyma is heterogeneously dense in a pattern which inhibits the sensitivity of mammography. There is no observable mass, architectural distortion, or asymmetric density in the left breast or elsewhere. No microcalcification or worrisome skin changes appreciated. Focused left breast sonography findings: Scanning is performed in the area of the palpable abnormality at approximately 4 o'clock in the inferolateral quadrant of the left breast. Heterogeneous fibroglandular background echotexture is seen. There is a 5 mm cyst at 4 o'clock superficially. In addition, there is an ill-defined hypoechoic irregular area measuring 5.9 cm in greatest diameter in the left breast in this location corresponding to the area of palpable fullness. Its long axis is parallel to the skin. Its margins are ill-defined. Impression: BIRADS category 4 suspicious left breast imaging. The palpable lump corresponds to an area of irregular hypoechoic tissue with some shadowing in the 4 o'clock position of the left breast and a 5.9 cm distribution. Malignancy cannot be excluded. Ultrasound guided needle biopsy is recommended. Marker clip placement should be performed although there is no mammographic correlate. BIRADS 4: BI-RADS/ACR category 4 mammogram. Suspicious Abnormality - biopsy should be considered. This mammogram was interpreted with the aid of an FDA-approved computer-aided detection system. The patient states she had a clinical breast exam in April 2019. The patient letter being requested is M4. Dense. This patient's estimated Tyrer-zick lifetime risk assessment for the breast cancer is 13.9 %. Electronically Signed by Tone Leary MD 05/01/2019 05:34 A
== END ==
LOC: M RAD 12:17
PROVIDERS: ATTEND Physician Assistant
DX: N64.4 Mastodynia (principal); N60.02 Solitary cyst of left breast; N63.20 Unspecified lump in the left breast, unspecified quadrant
CPT/HCPCS: 76642; 77066; G0279

== ENCOUNTER → 2019-07-30 | Outpatient (REF) | payer OTHER ==
[~2019-07-30] MED LIST changes: -ROPI1TAB PO; +ROPI1TAB3 PO
[2019-07-30 16:13] LABS: RHEUMATOID FACTOR QUANT < 10.0 IU/ML (<15.0)
[2019-07-30 16:23] LABS: TOTAL 25(OH) VITAMIN D 63.6 NG/ML (30.0-100.0)
[2019-08-02 14:06] LABS: ANTINUCLEAR ANTIBODIES DIRECT Negative (Negative)
[2019-08-06 11:05] LABS: DRVV SCREEN 58.7 SEC
[2019-08-06 11:07] LABS: PTT LUPUS TYPE ANTICOAG SCREEN 1.5 (0-1.2)
[2019-08-06 11:15] LABS: DRVV CONFIRM 39.7 SEC; LUPUS CONFIRM RATIO 1.1
[2019-08-06 11:16] LABS: NORMALIZED RATIO 1.36 (0.00-1.20)
[2019-08-09 08:33] LABS: HEXAGONAL PHASE PHOSPHOLIPID 0 sec (0-11)
== END ==
LOC: M LABDRAWC 10:58
PROVIDERS: ATTEND Physician Assistant Medical
DX: E55.9 Vitamin D deficiency, unspecified (principal); M79.10 Myalgia, unspecified site; M25.50 Pain in unspecified joint; R21 Rash and other nonspecific skin eruption